=== PATIENT | female | born 1975 | race Caucasian/White ===

== ENCOUNTER 2019-06-04 11:55 | Emergency (ER) | payer BC ==
[2019-06-04 12:03] VITALS: BP 139/84; PULSE 86; RESP 20; TEMP 97.4
[2019-06-04] MEDS ORDERED: LORazepam 1 MG TAB PO STA ×2 (12:15→13:07)
--- NOTE | 2019-06-04 12:18 | ED ---
General Adult HPI - General Chief complaint: Anxiety Stated complaint: Upper extremity tingling Time Seen by Provider: 06/04/19 12:06 Source: patient, family, RN notes reviewed Mode of arrival: ambulatory Limitations: no limitations - History of Present Illness Initial comments: Patient is a pleasant 43-year-old female presenting to the emergency department with concerns for anxiety. Patient has been more anxious recently associated with menopausal state. Patient did talk to her doctor and just increased Zoloft 2 days ago. Patient had to go to the ER yesterday and received Ativan and that did help. A berkowitz was doing somewhat better this morning and then has become more anxious recently. Patient complains of tingling of both of her arms that at times one side seems worse than the other. No weakness. No suicidal or homicidal thoughts. Patient did have similar symptoms approximately 5 years ago with state. - Related Data Allergies Allergy/AdvReac Type Severity Reaction Status Date / Time Penicillins Allergy Swelling Verified 06/04/19 12:03 Sulfa (Sulfonamide Allergy Rash/Hives Verified 06/04/19 12:04 Antibiotics) Review of Systems ROS Statement: Those systems with pertinent positive or pertinent negative responses have been documented in the HPI. ROS Other: All systems not noted in ROS Statement are negative. Constitutional: Denies: fever Eyes: Denies: eye pain ENT: Denies: ear pain Respiratory: Denies: cough Cardiovascular: Denies: chest pain Endocrine: Denies: fatigue Gastrointestinal: Reports: nausea. Denies: abdominal pain Genitourinary: Denies: dysuria Musculoskeletal: Denies: back pain Skin: Denies: rash Neurological: Reports: paresthesias Psychiatric: Reports: anxiety Past Medical History Past Medical History: No Reported History Additional Past Medical History / Comment(s): post depression, menapause. History of Any Multi-Drug Resistant Organisms: None Reported Past Surgical History: Section Past Psychological History: Anxiety, Panic Disorder Smoking Status: Never smoker Past Alcohol Use History: None Reported Past Drug Use History: None Reported General Exam Limitations: no limitations General appearance: alert, in no apparent distress, anxious Head exam: Present: normocephalic Eye exam: Present: normal appearance, PERRL, EOMI. Absent: nystagmus ENT exam: Present: normal oropharynx Neck exam: Present: normal inspection Respiratory exam: Present: normal lung sounds bilaterally Cardiovascular Exam: Present: regular rate, normal rhythm GI/Abdominal exam: Present: soft. Absent: tenderness Extremities exam: Present: normal inspection, full ROM Neurological exam: Present: alert, CN II-XII intact. Absent: motor sensory deficit Expanded Neurological exam: Present: protecting the airway Speech: Present: fluid speech Cranial nerves: EOM's Intact: Normal Motor strength exam: RUE: 5, LUE: 5, RLE: 5, LLE: 5 Eye Response: (4) open spontaneously Motor Response: (6) obeys commands Verbal Response: (5) oriented Psychiatric exam: Present: anxious Skin exam: Present: normal color Course Vital Signs 06/04/19 11:59 Temperature 97.4 F L Pulse Rate 86 Respiratory 20 Rate Blood Pressure 139/84 O2 Sat by Pulse 99 Oximetry Medical Decision Making - Medical Decision Making Patient reevaluated and significantly improved. Patient and family updated on need for follow-up. Patient given second dose of Ativan if needed for tomorrow. Disposition Clinical Impression: Acute anxiety Disposition: HOME SELF-CARE Condition: Stable Instructions (If sedation given, give patient instructions): Generalized Anxiety Disorder (ED) Additional Instructions: Please follow-up with primary care physician in the beginning of the week. Return for thoughts of self-harm, not functioning at home, worsening symptoms or other concerns. Is patient prescribed a controlled substance at d/c from ED?: No Referrals: Odilia Chaudhry DO [Primary Care Provider] - 1-2 days Time of Disposition: 13:08
== END 2019-06-04 13:14 | disposition home or self-care (01) ==
LOC: EC 11:55
DX: F41.9 Anxiety disorder, unspecified (principal); Z88.0 Allergy status to penicillin; Z88.2 Allergy status to sulfonamides
CPT/HCPCS: 99283